=== PATIENT | male | born 1955 | race Caucasian/White ===

== ENCOUNTER 2022-09-18 21:02 | Emergency (ER) | payer MEDICARE ==
[~2022-09-18] VITALS: Ht 172.7 cm; Wt 104.3 kg
[2022-09-18] MEDS ORDERED: PLAVIX75 M1 PO (21:19)
[2022-09-18] MEDS ORDERED: ASPIRIN ADULT L81 M2 PO (21:19)
[2022-09-18] MEDS ORDERED: LIPITOR10 MG PO (21:20)
[2022-09-18] MEDS ORDERED: GLYBURIDE5 MG PO (21:20)
[2022-09-18] MEDS ORDERED: AMITRIPTYLINE10 MG PO (21:21)
[2022-09-18 21:37] LABS: BASO # 0.1 10*3/uL (0.0-0.1); BASO % 1.2 % (0.0-1.0); HEMATOCRIT 41.2 % (42.0-52.0); LYMPH # 0.3 10*3/uL (1.3-4.4); LYMPH % 6.4 % (27.0-41.0); MEAN CELL VOLUME 82.7 fl (80.0-94.0); MEAN CORPUSCULAR HGB 26.9 pg (27.0-31.0); MEAN CORPUSCULAR HGB CONC 32.5 g/dl (33.0-37.0); MEAN PLATELET VOLUME 10.3 fl (9.6-12.3); MONO # 0.4 10*3/uL (0.1-1.0); MONO % 9.1 % (3.0-9.0); NEUT % 82.3 % (47.0-73.0); PLATELET COUNT AUTOMATED 158 10*3/uL (130-400); RED BLOOD COUNT 4.98 10*6/uL (4.50-5.90); RED CELL DISTRI WIDTH 14.6 % (0-14.5); WHITE BLOOD COUNT 4.8 10*3/uL (4.8-10.8)
[2022-09-18 21:51] LABS: ACT PARTIAL THROMBO TIME 30.5 SECONDS (20.0-32.1)
[2022-09-18 22:03] LABS: ALKALINE PHOSPHATASE 59 U/L (46-116); BUN 19 mg/dl (9-23); CHLORIDE 97 mmol/L (98-107); POTASSIUM 3.6 mmol/L (3.4-5.1); SGPT/ALT 29 U/L (10-49); TOTAL PROTEIN 7.4 gm/dL (6.0-8.0)
[2022-09-18 22:40] LABS: BILIRUBIN Negative (Negative); BLOOD Negative (Negative); CLARITY Clear (Clear); COLOR Yellow (Yellow); GLUCOSE 3+ (Negative); KETONE 2+ (Negative); LEUKO ESTERASE Negative (Negative); NITRITE Negative (Negative); SPECIFIC GRAVITY >= 1.030 (1.001-1.030); UROBILINOGEN 0.2 E.U./dl (0.0-1.0)
[2022-09-18 22:50] LABS: BACTERIA 1+; WBC 0-2 wbc/hpf (0-5)
== END 2022-09-19 04:30 | disposition home or self-care (01) ==
LOC: ED
PROVIDERS: Emergency Medicine
DX: R82.4 Acetonuria (principal); E87.1 Hypo-osmolality and hyponatremia; R41.0 Disorientation, unspecified; I25.10 Atherosclerotic heart disease of native coronary artery without angina pectoris; E11.9 Type 2 diabetes mellitus without complications; Z91.040 Latex allergy status